=== PATIENT | female | born 1985 | race Two or more races ===

== ENCOUNTER 2017-04-28 18:05 | Emergency (ER) | payer MEDICAID ==
[2017-04-28 18:15] VITALS: RESP 18; TEMP 98.1
[2017-04-28] MEDS ORDERED: NS 1,000 ML IV ONE (18:34)
[2017-04-28] MEDS ORDERED: HYDROmorphONE/DILAUDID 1 MG/ML SYR IVP ONE (18:36)
[2017-04-28 19:05] LABS: % IMMATURE GRANULYOCYTES 0.1 % (0.0-1.1); ABSOLUTE IMMATURE GRANULOCYTES 0.01 10^3/uL (0.00-0.10); ADD DIFF? NO; ADD MORPH? NO; ADD SCAN? NO; ATYPICAL LYMPHOCYTE FLAG 10 (0-99); FRAGMENT RBC FLAG 0 (0-99); HEMATOCRIT 39.3 % (38.0-47.0); HEMOGLOBIN 13.1 g/dL (12.6-16.3); LEFT SHIFT FLG 0 (0-99); LIPEMIA HEMOLYSIS FLAG 80 (0-99); MEAN CELL HEMOGLOBIN 28.7 pg (27.9-34.1); MEAN CELL HEMOGLOBIN CONCENTR. 33.3 g/dL (32.4-36.7); MEAN PLATELET VOLUME 10.1 fL (8.7-11.7); PLATELET CLUMPS FLAG 0 (0-99); PLATELET COUNT 289 10^3/uL (150-400); RED BLOOD CELL COUNT 4.57 10^6/uL (4.18-5.33); RED CELL DISTRIBUTION WIDTH 13.2 % (11.5-15.2)
[2017-04-28 19:19] LABS: COLOR PALE YELLOW; LEUKOCYTE ESTERASE,URINE NEGATIVE (NEGATIVE); NITRITE,URINE NEGATIVE (NEGATIVE)
[2017-04-28 19:21] LABS: ANION GAP 10 mEq/L (8-16); CARBON DIOXIDE 23 mEq/l (22-31); CHLORIDE 105 mEq/L (97-110); CREATININE 0.8 mg/dL (0.6-1.0); GLOMERULAR FILTRATION RATE > 60; GLUCOSE 83 mg/dL (70-100); POTASSIUM 3.7 mEq/L (3.5-5.2); SODIUM 138 mEq/L (134-144)
[2017-04-28 19:24] LABS: BACTERIA TRACE /hpf (NONE SEEN)
[2017-04-28 20:26] LABS: ALBUMIN 4.1 g/dL (3.5-5.0); BILIRUBIN,TOTAL 0.5 mg/dL (0.1-1.4); BILIRUBIN-CONJUGATED 0.4 mg/dL (0.0-0.5); BILIRUBIN-UNCONJUGATED 0.1 mg/dL (0.0-1.1); TOTAL PROTEIN 6.5 g/dL (6.3-8.2)
--- NOTE | 2017-04-28 20:28 | EDPHY ---
H & P Stated Complaint: Q pain to R flank x 1 hr;increases with movement Time Seen by Provider: 04/28/17 18:17 HPI/ROS: Chief complaint: Right flank pain History of present illness: This is a 31-year-old female who presents to the emergency department for evaluation of right flank pain. Patient reports the onset of symptoms earlier this evening. She describes a sharp pain the right flank radiating around towards the abdomen. She states it is a squeezing intermittent pain. She has had associated nausea but no vomiting. She denies precipitating factors. She denies alleviating factors. She denies other associated signs or symptoms including no fevers, no diarrhea or constipation, no urinary symptoms including no reported dysuria, hematuria or frequency or hesitancy. She does report multiple family members have had kidney stones in the past although she never has, she is concerned she has a stone. Review of systems: A 10 point review of systems was obtained and other than described above was negative - Personal History LMP (Females 10-55): Now Current Tetanus Diphtheria and Acellular Pertussis (TDAP): Yes - Medical/Surgical History Hx Asthma: No Hx Chronic Respiratory Disease: No Hx Diabetes: No Hx Cardiac Disease: No Hx Renal Disease: No Hx Cirrhosis: No Hx Alcoholism: No Hx HIV/AIDS: No Hx Splenectomy or Spleen Trauma: No Other PMH: none. - Social History Smoking Status: Never smoked - Physical Exam Exam: General Appearance: Alert, nontoxic. Eyes: Pupils equal and round no pallor or injection. ENT, Mouth: Mucous membranes moist. Respiratory: There are no retractions, lungs are clear to auscultation. Cardiovascular: Regular rate and rhythm. Gastrointestinal: Abdomen is soft and nontender, no masses, bowel sounds normal. Genitourinary: No CVA tenderness Neurological: alert and oriented x4. Strength and sensation intact and symmetrical. Skin: Warm and dry, no rashes. Musculoskeletal: Neck is supple nontender. Extremities are symmetrical, full range of motion. Psychiatric: Patient is oriented X 3, there is no agitation. Constitutional: Initial Vital Signs Temperature (C) 36.7 C 04/28/17 18:10 Heart Rate 72 04/28/17 18:10 Respiratory Rate 18 04/28/17 18:10 Blood Pressure 128/71 H 04/28/17 18:10 O2 Sat (%) 98 04/28/17 18:10 O2 Delivery Mode Room Air Allergies/Adverse Reactions: No Known Allergies Allergy (Verified 04/28/17 18:12) Home Medications: Medication Instructions Recorded NK [No Known Home Meds] 04/28/17 Medical Decision Making - Diagnostics Imaging Results: Imaging Impressions Abdomen/Pelvis CT 04/28/17 19:30 Impression: Mild dilatation of the right ureter potentially related to UTI, otherwise negative non-contrast CT examination of the urinary system. Results called to [facility] at 8:00 PM. Attention: This CT examination is specifically designed to evaluate patients who are clinically suspected of having acute obstructive uropathy. This examination does not use radiographic contrast, and as such, provides only a limited evaluation of the abdomen, pelvis and retroperitoneum. If there is further clinical suspicion for pathological conditions other than obstructive uropathy, a complete CT evaluation of the abdomen and pelvis utilizing intravenous, oral, and rectal contrast should be considered. ED Course/Re-evaluation: Patient discussed with my secondary supervising physician Dr. Marcos Orr. Patient presents to the emergency department for flank pain. She describes a colicky pain. Blood studies are largely unremarkable, only a very trace elevation in lipase. Urinalysis does have blood in it, no convincing evidence of obvious infection. CT scan showed dilatation of the right ureter, recently passed stone versus infection as possible causes. I believe patient's history, physical exam and evaluation is most consistent with a recently passed kidney stone. I believe infection is unlikely without fever, white count, significant urinary findings. I do not believe antibiotics are warranted this time. Urine culture is ordered. Patient's pain is well controlled. She will be discharged home. She is referred to Urology for recheck. Strict return precautions are given. Patient voiced understanding and agreement with plan. Differential Diagnosis: Included but not limited to cystitis, pyelonephritis, nephrolithiasis, biliary tract disease, pancreatitis, colitis - Data Points Laboratory Results: Laboratory Results 04/28/17 18:45 04/28/17 18:45 04/28/17 04/28/17 04/28/17 18:45 18:45 18:45 WBC RBC Hgb Hct MCV MCH MCHC RDW Plt Count MPV Neut % (Auto) Lymph % (Auto) [place] % (Auto) Eos % (Auto) Baso % (Auto) Nucleat RBC Rel Count Absolute Neuts (auto) Absolute Lymphs (auto) Absolute Monos (auto) Absolute Eos (auto) Absolute Basos (auto) Absolute Nucleated RBC Immature Gran % Immature Gran # Sodium Potassium Chloride Carbon Dioxide Anion Gap BUN Creatinine Estimated GFR Glucose Calcium Total Bilirubin 0.5 mg/dL mg/dL (0.1-1.4) Conjugated Bilirubin 0.4 mg/dL mg/dL (0.0-0.5) Unconjugated Bilirubin 0.1 mg/dL mg/dL (0.0-1.1) AST 26 IU/L IU/L (14-46) ALT 35 IU/L IU/L (9-52) Alkaline Phosphatase 50 IU/L IU/L (38-126) Total Protein 6.5 g/dL g/dL (6.3-8.2) Albumin 4.1 g/dL g/dL (3.5-5.0) Lipase 313.0 IU/L H IU/L (23-300) Beta HCG, Qual NEGATIVE Urine Color PALE YELLOW Urine Appearance CLEAR Urine pH 6.0 (5.0-7.5) Ur Specific [place] 1.006 (1.002-1.030) Urine Protein NEGATIVE (NEGATIVE) Urine Ketones NEGATIVE (NEGATIVE) Urine Blood 1+ H (NEGATIVE) Urine Nitrate NEGATIVE (NEGATIVE) Urine Bilirubin NEGATIVE (NEGATIVE) Urine Urobilinogen NEGATIVE EU EU (0.2-1.0) Ur Leukocyte Esterase NEGATIVE (NEGATIVE) Urine RBC 1-3 /hpf /hpf (0-3) Urine WBC 1-3 /hpf /hpf (0-3) Ur Epithelial Cells TRACE /lpf /lpf (NONE-1+) Urine Bacteria TRACE /hpf H /hpf (NONE SEEN) Urine Glucose NEGATIVE (NEGATIVE) 04/28/17 04/28/17 18:45 18:45 WBC 7.82 10^3/uL 10^3/uL (3.80-9.50) RBC 4.57 10^6/uL 10^6/uL (4.18-5.33) Hgb 13.1 g/dL g/dL (12.6-16.3) Hct 39.3 % % (38.0-47.0) MCV 86.0 fL fL (81.5-99.8) MCH 28.7 pg pg (27.9-34.1) MCHC 33.3 g/dL g/dL (32.4-36.7) RDW 13.2 % % (11.5-15.2) Plt Count 289 10^3/uL 10^3/uL (150-400) MPV 10.1 fL fL (8.7-11.7) Neut % (Auto) 45.2 % % (39.3-74.2) Lymph % (Auto) 44.2 % % (15.0-45.0) [place] % (Auto) 7.7 % % (4.5-13.0) Eos % (Auto) 2.0 % % (0.6-7.6) Baso % (Auto) 0.8 % % (0.3-1.7) Nucleat RBC Rel Count 0.0 % % (0.0-0.2) Absolute Neuts (auto) 3.53 10^3/uL 10^3/uL (1.70-6.50) Absolute Lymphs (auto) 3.46 10^3/uL H 10^3/uL (1.00-3.00) Absolute Monos (auto) 0.60 10^3/uL 10^3/uL (0.30-0.80) Absolute Eos (auto) 0.16 10^3/uL 10^3/uL (0.03-0.40) Absolute Basos (auto) 0.06 10^3/uL 10^3/uL (0.02-0.10) Absolute Nucleated RBC 0.00 10^3/uL 10^3/uL (0-0.01) Immature Gran % 0.1 % % (0.0-1.1) Immature Gran # 0.01 10^3/uL 10^3/uL (0.00-0.10) Sodium 138 mEq/L mEq/L (134-144) Potassium 3.7 mEq/L mEq/L (3.5-5.2) Chloride 105 mEq/L mEq/L (97-110) Carbon Dioxide 23 mEq/l mEq/l (22-31) Anion Gap 10 mEq/L mEq/L (8-16) BUN 17 mg/dL mg/dL (7-23) Creatinine 0.8 mg/dL mg/dL (0.6-1.0) Estimated GFR > 60 Glucose 83 mg/dL mg/dL (70-100) Calcium 9.0 mg/dL mg/dL (8.5-10.4) Total Bilirubin Conjugated Bilirubin Unconjugated Bilirubin AST ALT Alkaline Phosphatase Total Protein Albumin Lipase Beta HCG, Qual Urine Color Urine Appearance Urine pH Ur Specific [place] Urine Protein Urine Ketones Urine Blood Urine Nitrate Urine Bilirubin Urine Urobilinogen Ur Leukocyte Esterase Urine RBC Urine WBC Ur Epithelial Cells Urine Bacteria Urine Glucose Medications Given: Discontinued Medications Hydromorphone HCl (Dilaudid) 0.5 mg IVP EDNOW ONE Stop: 04/28/17 18:37 Last Admin: 04/28/17 18:56 Dose: 0.5 mg Sodium Chloride (Ns) 1,000 mls @ 0 mls/hr IV ONCE ONE; Wide Open PRN Reason: Protocol Stop: 04/28/17 18:35 Last Admin: 04/28/17 18:55 Dose: 1,000 mls Departure - Departure Disposition: Home, Routine, Self-Care Clinical Impression: Acute flank pain Condition: Good Instructions: Flank Pain (ED) Additional Instructions: Follow-up with her primary care doctor for recheck this week If symptoms worsen or new symptoms develop including increasing pain, development of fever or other signs or symptoms return to the emergency room for recheck Referrals: [facility] [Other] - As per Instructions Kimani Tian MD [Medical Doctor] - As per Instructions
[2017-04-28 21:48] VITALS: BP 115/49; PULSE 55; O2SAT 97
== END 2017-04-28 21:40 | disposition home or self-care (01) ==
DX: R10.9 Unspecified abdominal pain (principal)
CPT/HCPCS: 96374; J1170

== ENCOUNTER 2018-08-28 01:19 | Emergency (ER) | payer MEDICAID ==
[2018-08-28] MEDS ORDERED: IBUPROFEN 600 MG TAB PO ONE (01:28)
[2018-08-28] MEDS ORDERED: ACETAMINOPHEN 325 MG TAB PO ONE (01:28)
--- NOTE | 2018-08-28 01:29 | EDPHY ---
H & P Stated Complaint: Fever, sore throat Time Seen by Provider: 08/28/18 01:28 HPI/ROS: HPI CHIEF COMPLAINT: Fever and sore throat. HISTORY OF PRESENT ILLNESS: 33-year-old female, presents emergency room sore throat and fever. She states this started yesterday she started feeling a sore throat. Hurts to swallow. Denies any trouble breathing. Denies productive cough. States she took Tylenol around 6 o'clock last night. Has been sleeping otherwise. It is now 130 in the morning. She presents emergency room with worsening sore throat. Additionally reports fever. Muscle aches. Denies headache or neck pain. Denies cough. Past Medical History: Denies medical history Past Surgical History: Denies surgical history Social History: Denies drugs alcohol tobacco. Family History: Noncontributory ROS REVIEW OF SYSTEMS: 10 Systems were reviewed and negative with the exception of the elements mentioned in the history of present illness. Exam Constitutional nontoxic. triage nursing summary reviewed, vital signs reviewed , awake/alert. Temperature to be 38.2. Eyes normal conjunctivae and sclera, EOMI, PERRLA. HENT posterior pharynx is erythematous, there is exudate bilaterally but no significant tonsillar bed swelling, uvula midline, no signs of SLASHER HAND RPA, moist mucus membranes, no epistaxis, neck supple/ no meningismus, no raccoon eyes. Respiratory clear to auscultation bilaterally, normal breath sounds, no respiratory distress, no wheezing. Cardiovascular rate normal, regular rhythm, no murmur, no edema, distal pulses normal. Gastrointestinal soft, non-tender, no rebound, no guarding, normal bowel sounds, no distension, no pulsatile mass. Genitourinary no CVA tenderness. Musculoskeletal no midline vertebral tenderness, full range of motion, no calf swelling, no tenderness of extremities, no meningismus, good pulses, neurovascularly intact. Skin pink, warm, & dry, no rash, skin atraumatic. Neurologic awake, alert and oriented x 3, AAOx3, moves all 4 extremities equally, motor intact, sensory intact, CN II-XII intact, normal cerebellar, normal vision, normal speech. Psychiatric normal mood/affect. Heme/Lymph/Immune no lymphadenopathy. Differential Diagnosis: Includes but is not limited to in a particular order viral pharyngitis, strep pharyngitis, acute febrile illness, dehydration Medical Decision Making: Plan for this patient rapid strep. Tylenol Motrin for fever control. P.o. Fluids. Re-evaluation: 0225: Patient re-evaluated this time resting comfortably no acute distress. Vital signs stable. Fever down and heart rate down. Has much better after fluids Tylenol Motrin. Posterior pharynx is erythematous with some exudate. Rapid strep is negative but still inclined to treat. 1st dose of azithromycin given emergency room. Prescription for azithromycin, Decadron, ibuprofen. Return precautions discussed with the patient. Return if worsening symptoms includes worsening fever, worsening sore throat, vomiting. Source: Patient - Personal History LMP (Females 10-55): 15-21 Days Ago Current Tetanus/Diphtheria Vaccine: Yes Current Tetanus Diphtheria and Acellular Pertussis (TDAP): Yes - Medical/Surgical History Hx Asthma: No Hx Chronic Respiratory Disease: No Hx Diabetes: No Hx Cardiac Disease: No Hx Renal Disease: No Hx Cirrhosis: No Hx Alcoholism: No Hx HIV/AIDS: No Hx Splenectomy or Spleen Trauma: No Other PMH: none. - Social History Smoking Status: Never smoked Constitutional: Initial Vital Signs Temperature (C) 38.2 C 08/28/18 01:22 Heart Rate 102 H 08/28/18 01:22 Respiratory Rate 22 H 08/28/18 01:22 Blood Pressure 126/67 H 08/28/18 01:22 O2 Sat (%) 97 08/28/18 01:22 O2 Delivery Mode Room Air Allergies/Adverse Reactions: No Known Allergies Allergy (Verified 08/28/18 01:21) Home Medications: Medication Instructions Recorded Azithromycin [Zithromax] 250 mg PO DAILY #6 tab 08/28/18 Dexamethasone [Decadron 4 MG (*)] 4 mg PO DAILY #4 tab 08/28/18 Ibuprofen [Motrin (*)] 800 mg PO Q6-8PRN #14 tab 08/28/18 Medical Decision Making - Data Points Laboratory Results: 08/28/18 08/28/18 Unknown 01:35 Group A Strep Screen NEGATIVE (NEGATIVE) Group A Strep DNA Pending Medications Given: Discontinued Medications Acetaminophen (Tylenol) 650 mg PO EDNOW ONE Stop: 08/28/18 01:29 Last Admin: 08/28/18 01:32 Dose: 650 mg Azithromycin (Zithromax) 500 mg PO EDNOW ONE PRN Reason: Protocol Stop: 08/28/18 01:58 Last Admin: 08/28/18 02:19 Dose: 500 mg Ibuprofen (Motrin) 600 mg PO EDNOW ONE Stop: 08/28/18 01:29 Last Admin: 08/28/18 01:32 Dose: 600 mg Departure - Departure Disposition: Home, Routine, Self-Care Clinical Impression: Strep pharyngitis Condition: Good Instructions: Pharyngitis (ED) Additional Instructions: 1. Drink lots of fluids stay well-hydrated. 2. Alternate Tylenol and or Motrin every 6-8 hours for fever and pain control 3. Return to the emergency room if there is worsening symptoms. Referrals: Patient,NotPresent [Unknown] - As per Instructions Prescriptions: Azithromycin [Zithromax] 250 mg PO DAILY #6 tab Dexamethasone [Decadron 4 MG (*)] 4 mg PO DAILY #4 tab Ibuprofen [Motrin (*)] 800 mg PO Q6-8PRN #14 tab
[2018-08-28] MEDS ORDERED: AZITHROMYCIN 250 MG TAB PO ONE (01:57)
[2018-08-28 02:22] VITALS: BP 121/74
[2018-08-28 12:16] LABS: GROUP A STREP DNA (THROAT) POSITIVE (NEGATIVE)
== END 2018-08-28 02:30 | disposition home or self-care (01) ==
DX: J02.0 Streptococcal pharyngitis (principal)